=== PATIENT | male | born 1980 | race African-American/Black ===

== ENCOUNTER 2016-07-28 15:54 | Inpatient (IN) | payer OTHER ==
[~2016-07-28] VITALS: Ht 185.4 cm; Wt 73.7 kg
[2016-07-28] MEDS ORDERED: SOD CHLORIDE 0.9% 2,000 ML IV STA (16:08)
[2016-07-28] MEDS ORDERED: LACTATED RINGER'S 1,000 ML IV STA (16:08)
[2016-07-28 16:33] LABS: ADD SCAN DIFF NO
[2016-07-28 16:34] LABS: BASOPHILS % 0.2 % (0.0-2.0); HEMATOCRIT 51.2 % (42.0-52.0); HEMOGLOBIN 18.9 g/dl (14.0-18.0); LYMPHOCYTES # 0.6 10^3/ul (0.8-2.9); LYMPHOCYTES % 4.9 % (15.0-51.0); MEAN CORPUSCULAR HEMOGLOBIN 32.5 pg (29.0-33.0); MEAN CORPUSCULAR HGB CONC 36.9 g/dl (32.0-37.0); MEAN CORPUSCULAR VOLUME 88.1 fl (82.0-101.0); MEAN PLATELET VOLUME 9.1 fl (7.4-10.4); MONOCYTE # 0.8 10^3/ul (0.3-0.9); MONOCYTES % 6.1 % (0.0-11.0); NEUTROPHIL # 11.1 10^3/ul (1.6-7.5); NEUTROPHILS % 88.3 % (39.0-77.0); PLATELET COUNT 299 10^3/UL (140-415); RED BLOOD COUNT 5.81 10^6/ul (4.70-6.10); RED CELL DISTRIBUTION WIDTH 12.5 % (11.5-14.5); WHITE BLOOD COUNT 12.5 10^3/ul (4.8-10.8)
[2016-07-28 16:53] LABS: ALBUMIN 4.9 g/dl (3.3-4.9); ALBUMIN/GLOBULIN RATIO 1.58; BILIRUBIN,INDIRECT 0.4 mg/dl (0-1.1); BILIRUBIN,TOTAL 0.4 mg/dl (0.2-1.3); CALCIUM 9.6 mg/dl (8.4-10.2); CREATININE 1.34 mg/dl (0.61-1.24); MAGNESIUM 2.3 mg/dl (1.7-2.5); POTASSIUM 5.3 mmol/L (3.5-5.1)
[2016-07-28 17:05] LABS: ADD UMIC YES; URINE BILIRUBIN (Dip) NEGATIVE (NEGATIVE); URINE BLOOD (Dip) TRACE (NEGATIVE); URINE COLOR LT. YELLOW (YELLOW); URINE GLUCOSE (Dip) >=1000 % (NEGATIVE); URINE KETONES (Dip) 3+ (NEGATIVE); URINE LEUKOCYTE ESTERASE (Dip) NEGATIVE (NEGATIVE); URINE NITRITE (Dip) NEGATIVE (NEGATIVE); URINE TOTAL PROTEIN (Dip) NEGATIVE (NEGATIVE); URINE UROBILINOGEN (Dip) 0.2 E.U./dL (0.1-1.0)
[2016-07-28] MEDS ORDERED: INSULIN HUMAN REGULAR 100 UNIT in SOD CHLORIDE 0.9% 99 ML IV STA (17:06)
[2016-07-28 17:21] LABS: SQUAMOUS EPITHELIAL CELL,UR RARE; URINE RBCS 0-2 /HPF (0)
[2016-07-28] MEDS ORDERED: SOD CHLORIDE 0.9% 1,000 ML IV ONE (19:09)
--- NOTE | 2016-07-28 19:26 | ERA ---
ER Documentation Chief Complaint Date/Time DATE: 07/28/16 TIME: 19:23 Chief Complaint VOMITING AND DIARRHEA X 2 DAYS HPI Patient is a 36-year-old male with diabetes who presents saying "I think I have a virus". He said that he is vomiting and cannot keep anything down. He feels weak all over. He was breathing hard. This started on Wednesday. He said that he stopped taking his medications for diabetes 10 months ago. He does not currently have a primary doctor. Upon review of old medical records this is the patient's first visit to the emergency department. ROS All systems reviewed and are negative except as per history of present illness. Allergies Allergies: Coded Allergies: No Known Allergy (Unverified , 07/28/16) PMhx/Soc History of Surgery: No Anesthesia Reaction: No Hx Neurological Disorder: No Hx Respiratory Disorders: No Hx Cardiac Disorders: No Hx Psychiatric Problems: No Hx Miscellaneous Medical Probl: Yes (diabetes) Hx Alcohol Use: No Hx Substance Use: Yes (marijuana) Hx Tobacco Use: Yes Smoking Status: Current every day smoker FmHx Family History: diabetes Physical Exam Vitals Vital Signs Date Time Temp Pulse Resp B/P Pulse Ox O2 Delivery O2 Flow Rate FiO2 07/28/16 18:41 96 18 125/77 100 Room Air 07/28/16 17:55 94 21 116/74 100 Room Air 07/28/16 16:03 98.0 122 18 157/98 99 Physical Exam Const: No acute distress Head: Atraumatic Eyes: Normal Conjunctiva ENT: Normal External Ears, Nose and Mouth. Neck: Full range of motion..~ No meningismus. Resp: Clear to auscultation bilaterally Cardio: Regular rate and rhythm, no murmurs Abd: Diffuse tenderness to palpation without rebound or guarding Skin: No petechiae or rashes Back: No midline or flank tenderness Ext: No cyanosis, or edema Neur: Awake and alert Psych: Normal Mood and Affect Result Diagram: 07/28/16 1615 07/28/16 1615 Results 24 hrs Laboratory Tests Test 07/28/16 16:15 07/28/16 16:24 07/28/16 16:45 07/28/16 19:02 White Blood Count 12.510^3/ul Red Blood Count 5.8110^6/ul Hemoglobin 18.9g/dl Hematocrit 51.2% Mean Corpuscular Volume 88.1fl Mean Corpuscular Hemoglobin 32.5pg Mean Corpuscular Hemoglobin Concent 36.9g/dl Red Cell Distribution Width 12.5% Platelet Count 78337^3/UL Mean Platelet Volume 9.1fl Neutrophils % 88.3% Lymphocytes % 4.9% Monocytes % 6.1% Eosinophils % 0.0% Basophils % 0.2% Nucleated Red Blood Cells % 0.0/100WBC Neutrophils # 11.110^3/ul Lymphocytes # 0.610^3/ul Monocytes # 0.810^3/ul Eosinophils # 0.010^3/ul Basophils # 0.010^3/ul Nucleated Red Blood Cells # 0.010^3/ul Sodium Level 122mmol/L Potassium Level 5.3mmol/L Chloride Level 89mmol/L Carbon Dioxide Level 9mmol/L Anion Gap 29 Blood Urea Nitrogen 22mg/dl Creatinine 1.34mg/dl Glucose Level 732mg/dl Lactic Acid Level 3.2mmol/L Calcium Level 9.6mg/dl Magnesium Level 2.3mg/dl Total Bilirubin 0.4mg/dl Direct Bilirubin 0.00mg/dl Indirect Bilirubin 0.4mg/dl Aspartate Amino Transf (AST/SGOT) 21IU/L Alanine Aminotransferase (ALT/SGPT) 56IU/L Alkaline Phosphatase 82IU/L Total Protein 8.0g/dl Albumin 4.9g/dl Globulin 3.10g/dl Albumin/Globulin Ratio 1.58 Bedside Glucose > 595mg/dL 452mg/dL Urine Color LT. YELLOW Urine Clarity CLEAR Urine pH 5.0 Urine Specific [place] 1.015 Urine Ketones 3+ Urine Nitrite NEGATIVE Urine Bilirubin NEGATIVE Urine Urobilinogen 0.2 E.U./dL Urine Leukocyte Esterase NEGATIVE Urine Microscopic RBC 0-2/HPF Urine Microscopic WBC 0-2/HPF Urine Squamous Epithelial Cells RARE Urine Hemoglobin TRACE Urine Glucose >=1000% Urine Total Protein NEGATIVE Current Medications Medications (Trade) Dose Ordered Sig/Mami Route PRN Reason Start Time Stop Time Status Last Admin Dose Admin Sodium Chloride 2,000 ml @ 1,000 mls/hr Q2H STAT IV 07/28/16 16:08 07/28/16 18:07 DC 07/28/16 16:54 Lactated Ringer's 1,000 ml @ 1,000 mls/hr Q1H STAT IV 07/28/16 16:08 07/28/16 17:07 DC 07/28/16 18:37 Insulin Human Regular 100 unit/ Sodium Chloride 100 ml @ 7 mls/hr ONCE STAT IV 07/28/16 17:06 07/29/16 07:23 07/28/16 17:52 Sodium Chloride (NS) 1,000 ml @ 200 mls/hr Q5H ONCE IV 07/28/16 19:09 07/29/16 00:08 07/28/16 19:21 Dextrose (D50w Syringe) 50 ml Q15M PRN IV For BS 50 or less 07/28/16 19:30 UNV Dextrose 25 ml 25 ml Q15M PRN IV BS between 50-70 07/28/16 19:30 UNV Insulin Human Regular/Sodium Chloride (Novolin-R/NS) 100 ml @ 0 mls/hr DKA PROTOCOL IV 07/28/16 19:30 UNV Diagnostic Test (Pha) (Accu-Chek) 1 ea Q1H XX 07/28/16 19:30 UNV Miscellaneous Information HYPOGLYCEMIA TREATMENT HYPOGLYCEM PROTOCOL PRN XX Hypoglycemia (BS < 70) 07/28/16 19:30 UNV Sodium Chloride 1,000 ml @ 125 mls/hr Q8H IV 07/28/16 19:20 UNV Dextrose/Sodium Chloride (D5-1/2ns) 1,000 ml @ 125 mls/hr Q8H IV 07/28/16 19:20 UNV Famotidine (Pepcid Iv) 20 mg BID IV 07/28/16 21:00 UNV Ondansetron HCl (Zofran Inj) 4 mg Q6H PRN IV NAUSEA AND/OR VOMITING 07/28/16 19:30 UNV Docusate Sodium (Colace) 200 mg BID PO 07/28/16 21:00 UNV Procedures/MDM EKG read by me: Rate/Rhythm: Sinus tachycardia Intervals: Normal Impression: Sinus tachycardia without ischemia Smoking Cessation Therapy: Pt. was lectured for greater than 3 minutes on the health risks of continued smoking and the benefits of cessation. Patient is a 36-year-old male with diabetes who presents with acute diabetic ketoacidosis. The patient was given 3 L of fluid resuscitation and was started on insulin drip at 7 U/h. The patient will be admitted to the intensive care unit under the care of Dr. Brown from the panel team. The patient is likely in DKA because he has been off of his medications. His lactic acid is elevated but I doubt sepsis at this time. Critical Care: Time: 35 minutes excluding all billable procedures. Treatments/Evaluations: Close monitoring and treatment of unstable vital signs, cardiorespiratory, and neurologic status, while maintaining tight balance of fluid, respiratory, and cardiac interventions. Departure Diagnosis: Primary Impression: DKA (diabetic ketoacidoses) Qualified Code: E13.10 - Diabetic ketoacidosis without coma associated with other specified diabetes mellitus Additional Impressions: Nausea and vomiting Qualified Code: R11.2 - Non-intractable vomiting with nausea, unspecified vomiting type Acidosis Condition: Critical BUD DEWITT MD July 28, 2016 19:26
[2016-07-28] MEDS ORDERED: ONDANSETRON 4 MG INJ IV PRN (19:30)
[2016-07-28] MEDS: ACCU-CHEK XX SCH ×5 (19:30→23:30)
[2016-07-28] MEDS ORDERED: INSULIN HUMAN REGULAR 100 UNIT in SOD CHLORIDE 0.9% 99 ML IV SCH (19:30)
[2016-07-28] MEDS ORDERED: DEXTROSE 50% 50 ML SYRINGE IV PRN ×2 (19:30)
[2016-07-28 21:53] LABS: POTASSIUM 4.2 mmol/L (3.5-5.1)
[2016-07-28 21:55] LABS: CREATININE 0.98 mg/dl (0.61-1.24); PHOSPHORUS 2.4 mg/dl (2.5-4.9)
[2016-07-28 21:56] LABS: CALCIUM 8.7 mg/dl (8.4-10.2)
--- NOTE | 2016-07-28 21:56 | HP ---
DATE OF ADMISSION: 07/28/2016 PRESENTING COMPLAINT: Loss of appetite, lethargy and nausea and vomiting. HISTORY OF PRESENTING COMPLAINT: A 36-year-old male with a known history of diabetes mellitus who has been off his medications for about 10 months now. The patient reports going off his oral medications because he ran out of them and couldn't get a refill. He states, however, he has never had DKA before. He denies fever but notes just severe lethargy, loss of appetite, polyuria as well as polydipsia. He denies visual changes, ear pain. He denies shortness of breath, cough or wheezing. Denies chest pain or palpitations. Denies edema. Denies dysuria or hematuria. Denies joint pain or swelling. Denies skin rash. Denies syncope, dizziness, seizure or focal weakness. REVIEW OF SYSTEMS: A 12-point review of systems was done. Pertinent findings are as noted in HPI. PAST MEDICAL HISTORY: Diabetes mellitus only. SURGICAL HISTORY: The patient denies. ALLERGIES: NO KNOWN DRUG ALLERGIES. SOCIAL HISTORY: Does smoke tobacco as well as marijuana. Drinks alcohol occasionally. Denies illicit drug use. FAMILY HISTORY: Noncontributory. HOME MEDICATIONS: None. PHYSICAL EXAMINATION: VITAL SIGNS: Temperature 98.0, pulse 96, respirations 18, blood pressure 125/77 , saturations are 100% on room air. GENERAL: A very lethargic male but alert and oriented, not in any acute distress. HEENT: Head normocephalic. Pupils equal and reactive. There is no scleral jaundice. The patient has diffuse oral thrush all over his mouth extending to his posterior pharynx, and his posterior pharynx also is somewhat inflamed. The patient, however, denies dysphagia. NECK: Supple without adenopathy or JVD. CHEST: Clear to auscultation with good breath sounds. CARDIOVASCULAR: mildly tachycardic but without murmurs. ABDOMEN: Soft, nontender, nondistended with normoactive bowel sounds. EXTREMITIES: The patient has no lower extremity edema. SKIN: Devoid of rash or jaundice. LABORATORY VALUES: Leukocytosis of 12,000, hemoglobin of 18 likely secondary to hemoconcentration, normal platelets. He has neutrophilia without bandemia. Chemistry: Serum glucose when he came in was 732 with lactic acid of 3.2. Sodium is low at 122, potassium was elevated at 5.3. BUN 22, creatinine 1.34. LFTs were unremarkable. Urinalysis was diffusely abnormal but not highly suggestive of a UTI. There was glycosuria greater than 1000 grams/dL, and there was significant ketonuria 3+. No imaging studies to report at this time. ASSESSMENT: A 36-year-old male who presents with severe acidosis secondary to: 1. Diabetic ketoacidosis. Bicarbonate level 9, serum glucose 732. 2. Systemic inflammatory response syndrome secondary to #1. 3. Hyperkalemia: will correct with glucose correction 4. pseudohyponatremia. 5. Acute renal insufficiency, likely prerenal in origin. 6. Severe dehydration secondary to #1. 7. Noncompliance with therapy. 8. Chronic tobacco use and abuse. PLAN: The patient is to be admitted into the intensive care unit for management of DKA via the DKA protocol, aggressive hydration and insulin drip. The patient will be kept n.p.o. except medications and ice chips. Will do serial labs and titrate his regimen as indicated. He will benefit from diabetic as well as dietary education. Will serially monitor his lactic acid as well, and he will be put on PPI for GI prophylaxis and SCDs for DVT prophylaxis. Further interventions will be per clinical course. Tobacco cessation counseling has commenced and will continue to be reinforced throughout this hospitalization. For further information and clarification, please review the patient's chart and my orders. Dictated By: IMANI GERARD MD, BA/PARTHA Conf#: [id number] DID#: [id number]
[2016-07-28] MEDS: ACETAMINOPHEN 325 MG TAB PO PRN (22:09)
[2016-07-29] VITALS (18 sets, daily range): BP systolic 101–120; BP diastolic 59–87; PULSE 73–99; RESP 14–22; Ht 185.4 cm; Wt 73.7 kg
[2016-07-29 00:01] LABS: CALCIUM 8.7 mg/dl (8.4-10.2); CREATININE 0.89 mg/dl (0.61-1.24); POTASSIUM 4.1 mmol/L (3.5-5.1)
[2016-07-29] MEDS: DEXTROSE 5%-0.45% NACL 1,000 ML IV SCH ×2 (00:17→03:20)
[2016-07-29] MEDS: ACCU-CHEK XX SCH ×11 (00:30→10:13)
[2016-07-29] MEDS: DOCUSATE SODIUM 100 MG CAP PO SCH ×3 (01:00→20:42)
[2016-07-29] MEDS: FAMOTIDINE 20 MG INJ IV SCH ×3 (01:00→20:42)
[2016-07-29] MEDS: SOD CHLORIDE 0.9% 1,000 ML IV SCH ×5 (01:20→23:50)
[2016-07-29 03:15] LABS: POTASSIUM 3.5 mmol/L (3.5-5.1)
[2016-07-29 03:17] LABS: CREATININE 0.79 mg/dl (0.61-1.24)
[2016-07-29 03:18] LABS: CALCIUM 8.7 mg/dl (8.4-10.2)
[2016-07-29] MEDS: ACETAMINOPHEN 325 MG TAB PO PRN ×2 (05:11→20:43)
[2016-07-29 06:39] LABS: CALCIUM 8.7 mg/dl (8.4-10.2); CREATININE 0.71 mg/dl (0.61-1.24); POTASSIUM 3.5 mmol/L (3.5-5.1)
[2016-07-29] MEDS ORDERED: INSULIN HUMAN REGULAR 100 UNIT in SOD CHLORIDE 0.9% 99 ML IV SCH (07:30)
[2016-07-29] MEDS ORDERED: DEXTROSE 50% 50 ML SYRINGE IV PRN ×4 (07:30→10:00)
[2016-07-29] MEDS ORDERED: GLUCOSE GEL 15 GRAM TUBE PO PRN ×2 (10:00)
[2016-07-29] MEDS ORDERED: GLUCOSE GEL 15 GRAM TUBE BUCCAL PRN (10:00)
[2016-07-29] MEDS ORDERED: GLUCAGON 1 MG INJ IM PRN (10:00)
[2016-07-29] MEDS: INSULIN GLARGINE [LANtus] 3 ML PEN SC SCH (10:12)
--- NOTE | 2016-07-29 10:32 | PN ---
Date/Time of Note Date/Time of Note DATE: 07/29/16 TIME: 10:32 Assessment/Plan VTE Prophylaxis VTE Prophylaxis Intervention: ambulation, SCD's Lines/Catheters IV Catheter Type (from Nrs): Peripheral IV Assessment/Plan Assessment/Plan A 36-year-old male who presents with managed for: Lethargy, nausea vomiting, 1. Diabetic ketoacidosis. : Patient has closed his gap. Commenced long- acting insulin and diabetic diet. * Transfer patient to [facility] / continue normal saline IV fluid 2. Systemic inflammatory response syndrome secondary to #1: Improved 3. Oral thrush: treat with nystatin / Screen for immunosuppression 4. Electrolyte abnormalities secondary to #1: : Resolved 5. Acute renal insufficiency, likely prerenal in origin: Resolved 6. Severe dehydration secondary to #1: improved 7. Noncompliance with therapy.: s/p counselling 8. Chronic tobacco use and abuse: s/p counselling Subjective 24 Hr Interval Summary Free Text/Dictation Patient feeling much better, asking for food. Exam/Review of Systems Vital Signs Vitals Vital Signs Date Time Temp Pulse Resp B/P Pulse Ox O2 Delivery O2 Flow Rate FiO2 07/29/16 09:00 98.7 90 15 114/75 98 Room Air Intake and Output 07/28/16 07/28/16 07/29/16 15:00 23:00 07:00 Intake Total 747 ml Output Total 1000 ml Balance -1000 ml 747 ml Exam Constitutional: alert, oriented Head: atraumatic, normocephalic, oral thrush. Neck: non-tender, supple Respiratory: clear to auscultation Cardiovascular: regular rate and rhythm Gastrointestinal: nl liver, spleen, non-tender, soft Extremities: normal pulses Results Result Diagram: 07/28/16 1615 07/29/16 0551 Results 24 hrs Laboratory Tests Test 07/28/16 16:15 07/28/16 16:24 07/28/16 16:45 07/28/16 19:02 White Blood Count 12.5 H Red Blood Count 5.81 Hemoglobin 18.9 H Hematocrit 51.2 Mean Corpuscular Volume 88.1 Mean Corpuscular Hemoglobin 32.5 Mean Corpuscular Hemoglobin Concent 36.9 Red Cell Distribution Width 12.5 Platelet Count 299 Mean Platelet Volume 9.1 Neutrophils % 88.3 H Lymphocytes % 4.9 L Monocytes % 6.1 Eosinophils % 0.0 Basophils % 0.2 Nucleated Red Blood Cells % 0.0 Neutrophils # 11.1 H Lymphocytes # 0.6 L Monocytes # 0.8 Eosinophils # 0.0 Basophils # 0.0 Nucleated Red Blood Cells # 0.0 Sodium Level 122 L Potassium Level 5.3 H Chloride Level 89 L Carbon Dioxide Level 9 *L Anion Gap 29 H Blood Urea Nitrogen 22 H Creatinine 1.34 H Glucose Level 732 *H Lactic Acid Level 3.2 H Calcium Level 9.6 Magnesium Level 2.3 Total Bilirubin 0.4 Direct Bilirubin 0.00 Indirect Bilirubin 0.4 Aspartate Amino Transf (AST/SGOT) 21 Alanine Aminotransferase (ALT/SGPT) 56 Alkaline Phosphatase 82 Total Protein 8.0 Albumin 4.9 Globulin 3.10 Albumin/Globulin Ratio 1.58 Bedside Glucose > 595 *H 452 *H Urine Color LT. YELLOW Urine Clarity CLEAR Urine pH 5.0 Urine Specific [place] 1.015 Urine Ketones 3+ H Urine Nitrite NEGATIVE Urine Bilirubin NEGATIVE Urine Urobilinogen 0.2 E.U./dL Urine Leukocyte Esterase NEGATIVE Urine Microscopic RBC 0-2 Urine Microscopic WBC 0-2 Urine Squamous Epithelial Cells RARE Urine Hemoglobin TRACE Urine Glucose >=1000 Urine Total Protein NEGATIVE Test 07/28/16 20:14 07/28/16 21:04 07/28/16 21:25 07/28/16 21:56 Bedside Glucose 312 H 239 H 205 Sodium Level 134 L Potassium Level 4.2 Chloride Level 109 # Carbon Dioxide Level 15 L Anion Gap 14 # Blood Urea Nitrogen 19 Creatinine 0.98 Glucose Level 221 #H Lactic Acid Level 1.9 Calcium Level 8.7 Phosphorus Level 2.4 L Magnesium Level 2.0 Test 07/28/16 22:30 07/28/16 23:01 07/28/16 23:30 07/29/16 00:14 Sodium Level 131 L Potassium Level 4.1 Chloride Level 106 Carbon Dioxide Level 17 L Anion Gap 12 Blood Urea Nitrogen 17 Creatinine 0.89 Glucose Level 165 Calcium Level 8.7 Bedside Glucose 150 87 Lactic Acid Level 1.1 Test 07/29/16 01:01 07/29/16 01:57 07/29/16 02:12 07/29/16 03:05 Bedside Glucose 98 113 84 Sodium Level 135 Potassium Level 3.5 Chloride Level 114 H Carbon Dioxide Level 17 L Anion Gap 8 Blood Urea Nitrogen 15 Creatinine 0.79 Glucose Level 92 # Calcium Level 8.7 Test 07/29/16 03:56 07/29/16 04:16 07/29/16 04:30 07/29/16 05:05 Bedside Glucose 63 L 132 140 155 Test 07/29/16 05:51 07/29/16 06:05 07/29/16 07:02 07/29/16 08:00 Sodium Level 127 L Potassium Level 3.5 Chloride Level 105 Carbon Dioxide Level 17 L Anion Gap 9 Blood Urea Nitrogen 13 Creatinine 0.71 Glucose Level 173 Lactic Acid Level 0.7 Calcium Level 8.7 Bedside Glucose 178 203 164 Test 07/29/16 08:55 07/29/16 10:06 Bedside Glucose 137 138 Medications Medications Current Medications Sodium Chloride 1,000 ml @ 125 mls/hr Q8H IV Last administered on 07/29/16 07 :12; Admin Dose 125 MLS/HR; Start 07/28/16 at 19:20; Stop 07/29/16 at 11:00 Dextrose/Sodium Chloride (D5-1/2ns) 1,000 ml @ 125 mls/hr Q8H IV Last administered on 07/29/16 00:17; Admin Dose 125 MLS/HR; Start 07/28/16 at 19:20 ; Stop 07/29/16 at 11:00 Famotidine (Pepcid Iv) 20 mg BID IV Last administered on 07/29/16 09:12; Admin Dose 20 MG; Start 07/28/16 at 21:00 Ondansetron HCl (Zofran Inj) 4 mg Q6H PRN IV NAUSEA AND/OR VOMITING; Start at 19:30 Docusate Sodium (Colace) 200 mg BID PO ; Start 07/28/16 at 21:00 Acetaminophen (Tylenol Tab) 650 mg Q6 PRN PO PAIN Last administered on 05:11; Admin Dose 650 MG; Start 07/28/16 at 22:00 Insulin Glargine (Lantus) 20 unit DAILY@08 SC Last administered on 07/29/16 10 :12; Admin Dose 20 UNIT; Start 07/29/16 at 10:00 Miscellaneous Information 1 ea NOTE XX ; Start 07/29/16 at 10:00 Glucose (Glutose) 15 gm Q15M PRN PO DECREASED GLUCOSE; Start 07/29/16 at 10:00 Glucose (Glutose) 22.5 gm Q15M PRN PO DECREASED GLUCOSE; Start 07/29/16 at 10: 00 Dextrose (D50w Syringe) 25 ml Q15M PRN IV DECREASED GLUCOSE; Start 07/29/16 at 10:00 Dextrose (D50w Syringe) 50 ml Q15M PRN IV DECREASED GLUCOSE; Start 07/29/16 at 10:00 Glucagon (Glucagen) 1 mg Q15M PRN IM DECREASED GLUCOSE; Start 07/29/16 at 10:00 Glucose (Glutose) 15 gm Q15M PRN BUCCAL DECREASED GLUCOSE; Start 07/29/16 at 10 :00 Miscellaneous Information (* Miscellaneous Pharmacy Order) HYPOGLYCEMIA PROTOCOL w... ONCE ONCE XX ; Start 07/29/16 at 10:30; Stop 07/29/16 at 10:31; Status UNV Miscellaneous Information (* Miscellaneous Pharmacy Order) Discontinue Glyburide , Glipizide,... ONCE ONCE XX ; Start 07/29/16 at 10:30; Stop 07/29/16 at 10:31 ; Status UNV Miscellaneous Information (* Miscellaneous Pharmacy Order) Discontinue all previ... ONCE ONCE XX ; Start 07/29/16 at 10:30; Stop 07/29/16 at 10:31; Status UNV Diagnostic Test (Pha) (Accu-Chek) 1 ea XX ; Start 07/30/16 at 02:00; Status UNV Nystatin (Nystatin Susp) 5 ml QID PO ; Start 07/29/16 at 10:30; Status UNV IMANI GERARD July 29, 2016 10:32
[2016-07-29 11:26] LABS: POTASSIUM 3.7 mmol/L (3.5-5.1)
[2016-07-29 11:28] LABS: CREATININE 0.67 mg/dl (0.61-1.24)
[2016-07-29 11:29] LABS: CALCIUM 8.4 mg/dl (8.4-10.2)
[2016-07-29] MEDS: NYSTATIN SUSP 5 ML CUP PO SCH ×4 (13:00→20:42)
[2016-07-29] MEDS: INSULIN ASPART [NOVOLOG] 3 ML PEN SC SCH ×3 (13:24→20:58)
[2016-07-29] MEDS: metFORMIN 500 MG TAB PO SCH (17:33)
[2016-07-29] MEDS ORDERED: metFORMIN 500 MG TAB PO SCH (17:35)
[2016-07-29] MEDS ORDERED: PENDING SANTYL ORDER FOR WOUND CARE XX PRN (20:00)
[2016-07-30] MEDS ORDERED: ZOLPIDEM 5 MG TAB PO PRN (02:00)
[2016-07-30] MEDS: ACCU-CHEK XX SCH (02:00)
[2016-07-30] MEDS: ACETAMINOPHEN 325 MG TAB PO PRN ×2 (02:02→08:40)
[2016-07-30 07:33] VITALS: BP 129/73; RESP 20
[2016-07-30] MEDS ORDERED: INSULIN GLARGINE [LANtus] 3 ML PEN SC SCH (08:00)
[2016-07-30] MEDS: INSULIN ASPART [NOVOLOG] 3 ML PEN SC SCH ×4 (08:16→20:43)
[2016-07-30] MEDS: SOD CHLORIDE 0.9% 1,000 ML IV SCH ×3 (08:17→23:14)
[2016-07-30] MEDS: INSULIN GLARGINE [LANtus] 3 ML PEN SC SCH (08:17)
[2016-07-30] MEDS: DOCUSATE SODIUM 100 MG CAP PO SCH ×2 (08:32→20:37)
[2016-07-30] MEDS: metFORMIN 500 MG TAB PO SCH ×2 (08:32→18:04)
[2016-07-30] MEDS: NYSTATIN SUSP 5 ML CUP PO SCH ×4 (08:32→20:37)
[2016-07-30] MEDS: FAMOTIDINE 20 MG INJ IV SCH ×2 (08:32→20:37)
[2016-07-30 09:38] LABS: ADD SCAN DIFF NO; BASOPHILS % 0.1 % (0.0-2.0); EOSINOPHILS % 0.1 % (0.0-7.0); HEMATOCRIT 35.4 % (42.0-52.0); LYMPHOCYTES # 0.9 10^3/ul (0.8-2.9); LYMPHOCYTES % 11.8 % (15.0-51.0); MEAN CORPUSCULAR HEMOGLOBIN 32.8 pg (29.0-33.0); MEAN CORPUSCULAR VOLUME 85.9 fl (82.0-101.0); MONOCYTE # 0.9 10^3/ul (0.3-0.9); MONOCYTES % 11.8 % (0.0-11.0); NEUTROPHIL # 5.6 10^3/ul (1.6-7.5); NEUTROPHILS % 75.7 % (39.0-77.0); PLATELET COUNT 165 10^3/UL (140-415); RED BLOOD COUNT 4.12 10^6/ul (4.70-6.10); RED CELL DISTRIBUTION WIDTH 12.7 % (11.5-14.5); WHITE BLOOD COUNT 7.4 10^3/ul (4.8-10.8)
[2016-07-30 10:05] LABS: HEMOGLOBIN 13.5 g/dl (14.0-18.0); MEAN CORPUSCULAR HGB CONC 38.1 g/dl (32.0-37.0)
[2016-07-30 10:11] LABS: CALCIUM 8.3 mg/dl (8.4-10.2); CREATININE 0.57 mg/dl (0.61-1.24); MAGNESIUM 1.5 mg/dl (1.7-2.5); POTASSIUM 3.1 mmol/L (3.5-5.1)
[2016-07-30] MEDS ORDERED: POTASSIUM CHLORIDE (SR) 20 MEQ TAB PO STA (11:00)
--- NOTE | 2016-07-30 11:00 | PN ---
Date/Time of Note Date/Time of Note DATE: 07/30/16 TIME: 10:58 Assessment/Plan VTE Prophylaxis VTE Prophylaxis Intervention: ambulation, SCD's Lines/Catheters IV Catheter Type (from Nrsg): Peripheral IV Assessment/Plan Assessment/Plan A 36-year-old male who presents with managed for: Lethargy, nausea vomiting, 1. Diabetic ketoacidosis. : resolved./ now focus on Diabetic control 2. Systemic inflammatory response syndrome secondary to #1: Improved 3. Oral thrush: treat with nystatin / Screen for immunosuppression 4. Hypokalemia and hypomagnesemia 5. Acute renal insufficiency, likely prerenal in origin: Resolved 6. Severe dehydration secondary to #1: improved 7. Noncompliance with therapy.: s/p counselling 8. Chronic tobacco use and abuse: s/p counselling 9. Diabetic foot ulcer with surrounding cellulitis and possible abscess: abx / ID / podiatry / XR and possible MRI Subjective 24 Hr Interval Summary Free Text/Dictation Patient found to have purulent toe wound on evaluation today Exam/Review of Systems Vital Signs Vitals Vital Signs Date Time Temp Pulse Resp B/P Pulse Ox O2 Delivery O2 Flow Rate FiO2 07/30/16 07:33 98.6 89 20 129/73 100 07/29/16 16:00 Room Air Intake and Output 07/29/16 07/29/16 07/30/16 15:00 23:00 07:00 Intake Total 1627.5 ml 250 ml 1625 ml Output Total 1200 ml 350 ml Balance 427.5 ml -100 ml 1625 ml Exam Constitutional: alert, oriented Head: atraumatic, normocephalic, oral thrush. Neck: non-tender, supple Respiratory: clear to auscultation Cardiovascular: regular rate and rhythm Gastrointestinal: nl liver, spleen, non-tender, soft Extremities: normal pulses Results Result Diagram: 07/30/16 0850 07/30/16 0850 Results 24 hrs Laboratory Tests Test 07/29/16 11:48 07/29/16 13:06 07/29/16 17:11 07/29/16 20:40 Bedside Glucose 307 H 289 H 145 201 Test 07/30/16 01:49 07/30/16 08:14 07/30/16 08:50 Bedside Glucose 188 153 White Blood Count 7.4 # Red Blood Count 4.12 #L Hemoglobin 13.5 #L Hematocrit 35.4 #L Mean Corpuscular Volume 85.9 Mean Corpuscular Hemoglobin 32.8 Mean Corpuscular Hemoglobin Concent 38.1 H Red Cell Distribution Width 12.7 Platelet Count 165 # Mean Platelet Volume 9.0 Neutrophils % 75.7 Lymphocytes % 11.8 L Monocytes % 11.8 H Eosinophils % 0.1 Basophils % 0.1 Nucleated Red Blood Cells % 0.0 Neutrophils # 5.6 Lymphocytes # 0.9 Monocytes # 0.9 Eosinophils # 0.0 Basophils # 0.0 Nucleated Red Blood Cells # 0.0 Sodium Level 129 L Potassium Level 3.1 L Chloride Level 103 Carbon Dioxide Level 24 Anion Gap 5 L Blood Urea Nitrogen 5 L Creatinine 0.57 L Glucose Level 179 Calcium Level 8.3 L Magnesium Level 1.5 L Medications Medications Current Medications Famotidine (Pepcid Iv) 20 mg BID IV Last administered on 07/30/16 08:32; Admin Dose 20 MG; Start 07/28/16 at 21:00 Ondansetron HCl (Zofran Inj) 4 mg Q6H PRN IV NAUSEA AND/OR VOMITING; Start at 19:30 Docusate Sodium (Colace) 200 mg BID PO Last administered on 07/30/16 08:32; Admin Dose 200 MG; Start 07/28/16 at 21:00 Acetaminophen (Tylenol Tab) 650 mg Q6 PRN PO PAIN Last administered on 08:40; Admin Dose 650 MG; Start 07/28/16 at 22:00 Insulin Glargine (Lantus) 20 unit DAILY@08 SC Last administered on 07/30/16 08: 17; Admin Dose 20 UNIT; Start 07/29/16 at 10:00 Miscellaneous Information 1 ea NOTE XX ; Start 07/29/16 at 10:00 Glucose (Glutose) 15 gm Q15M PRN PO DECREASED GLUCOSE; Start 07/29/16 at 10:00 Glucose (Glutose) 22.5 gm Q15M PRN PO DECREASED GLUCOSE; Start 07/29/16 at 10: 00 Dextrose (D50w Syringe) 25 ml Q15M PRN IV DECREASED GLUCOSE; Start 07/29/16 at 10:00 Dextrose (D50w Syringe) 50 ml Q15M PRN IV DECREASED GLUCOSE; Start 07/29/16 at 10:00 Glucagon (Glucagen) 1 mg Q15M PRN IM DECREASED GLUCOSE; Start 07/29/16 at 10:00 Glucose (Glutose) 15 gm Q15M PRN BUCCAL DECREASED GLUCOSE; Start 07/29/16 at 10 :00 Diagnostic Test (Pha) (Accu-Chek) 1 ea 02 XX ; Start 07/30/16 at 02:00 Nystatin 5 ml 5 ml QID PO Last administered on 07/30/16 08:32; Admin Dose 5 ML ; Start 07/29/16 at 10:30 Sodium Chloride (NS) 1,000 ml @ 125 mls/hr Q8H IV Last administered on 08:17; Admin Dose 125 MLS/HR; Start 07/29/16 at 15:00 [facility]isc[facility] This patient lamb... PRN PRN XX WOUND CARE; Start 07/29/16 at 20:00 Zolpidem Tartrate (Ambien) 5 mg HS PRN PO INSOMNIA Last administered on 02:01; Admin Dose 5 MG; Start 07/30/16 at 02:00 IMANI GERARD Jul 30, 2016 10:59 IMANI GERARD Jul 30, 2016 10:59
[2016-07-30] MEDS ORDERED: VANCOMYCIN IV PER PHARMACY XX SCH (11:30)
[2016-07-30] MEDS: LEVOFLOXACIN 500MG/D5W (PMX) 100 ML IVPB SCH (11:46)
[2016-07-30] MEDS ORDERED: POTASSIUM CHLORIDE 250 ML IVPB ONE (12:00)
[2016-07-30] MEDS ORDERED: MAGNESIUM SULFATE 2 GM/50 ML 50 ML IVPB ONE (12:00)
[2016-07-30] MEDS ORDERED: VANCOMYCIN 1.5 GM in SOD CHLORIDE 0.9% 250 ML IVPB SCH (13:00)
[2016-07-30] MEDS ORDERED: morphine 2 MG INJ IV ONE ×2 (14:00→22:20)
[2016-07-30] MEDS ORDERED: HYDROCODONE/APAP (7.5/325) TAB PO PRN (14:00)
[2016-07-30 19:38] VITALS: BP 114/58; RESP 18
[2016-07-30] MEDS: VANCOMYCIN 1 GM in NS 250 ML IVPB SCH (20:38)
[2016-07-30] MEDS ORDERED: LIDOCAINE 1% (MPF) 30 ML INJ INJ PRN (22:30)
[2016-07-30] MEDS ORDERED: HYDROCODONE/APAP (5/325) TAB PO PRN (23:00)
[2016-07-30] MEDS ORDERED: morphine 2 MG INJ IV PRN (23:00)
[2016-07-30] MEDS ORDERED: ASCORBIC ACID 500 MG TAB PO ONE (23:00)
--- NOTE | 2016-07-30 23:09 | CONS ---
DATE OF ADMISSION: 07/28/2016 DATE OF CONSULTATION: 07/30/2016 CHIEF COMPLAINT: Right foot infection. HISTORY OF PRESENT ILLNESS: This is a 36-year-old male with poorly controlled diabetes, who was adm itted with a blood sugar of 732 with a DKA. Was stabilized in the intensive care unit, and I was co nsulted for surgical evaluation. Patient relates a blister forming. Denies any trauma or injury or puncture. PAST MEDICAL HISTORY: Type 2 diabetes with neuropathy. PAST SURGICAL HISTORY: None. ALLERGIES: NO KNOWN DRUG ALLERGIES. SOCIAL HISTORY: Positive for marijuana. Social alcohol. FAMILY HISTORY: Diabetes. PHYSICAL EXAMINATION: VITAL SIGNS: Temperature 98.9, pulse is 99, respiratory rate 18, blood pressure 114/58, pulse oxime try is 98 at room air. GENERAL: The patient awake, alert, lying supine. EXTREMITIES: Patient with severe edema to the right foot. The compartments of the foot are distend ed with pitting edema. Edema is spreading to the ankle. There is an ulceration at the PIP joint, d orsal aspect of fourth toe. There is purulent drainage. Patient with decrease of protective sensat ion. No visible instability of the toe or mid foot. Pulses are bounding. Dystrophic nails. LABORATORIES: WBC 7.4, hemoglobin 13.5, hematocrit 35.4, platelets 165. Sodium 129, potassium 3.1, chloride 103, CO2 24, BUN 5, creatinine 0.57. Radiographs pending. Cultures of the nares is pendi ng. ASSESSMENT: 1. Right foot deep space abscess. 2. Diabetic foot ulceration. 3. Ascending cellulitis. 4. Type 2 diabetes, poorly controlled. 5. Diabetes with peripheral neuropathy. PLAN: The patient seen and evaluated. Imaging studies are pending. Procedure recommended to preve nt amputation. The patient is at risk and consented for incision and drainage, right foot. Proced ure was performed with nursing. Time out performed. The sural, superficial peroneal nerves were an esthetized with lidocaine 1% plain, 30 mL, and the foot was sterilized with Betadine solution, and u sing a hemostat, the ulceration was explored. There is a tunneling wound from the toe to the midfoo t. At this time, using an 11 blade, multiple incisions were made below skin, dermis, fascia, and ap proximately 40 to 50 mL of serosanguineous and purulent drainage drained. Cultures were obtained an d the surgical wounds were irrigated with Betadine and packed open with a gauze dressing. The patie nt tolerated the procedure well. The patient is scheduled for MRI. Radiographs have been obtained, but imaging his pending. Further disposition pending resolution or progression of infection. The patient is on vancomycin and Levaquin and nystatin. Continue tight glycemic control. Further recom mendations pending clinical appearance. Dictated By: OLESYA SOLIS/PARTHA Conf#: [id number] DID#: [id number]
[2016-07-31] MEDS: ACCU-CHEK XX SCH (02:34)
[2016-07-31] MEDS: VANCOMYCIN 1 GM in NS 250 ML IVPB SCH (05:19)
[2016-07-31] MEDS: SOD CHLORIDE 0.9% 1,000 ML IV SCH ×4 (07:00→23:00)
[2016-07-31] MEDS ORDERED: LORAZEPAM 2 MG INJ IV ONE (07:00)
[2016-07-31 07:11] LABS: ADD SCAN DIFF NO
[2016-07-31 07:17] LABS: BASOPHILS % 0.1 % (0.0-2.0); EOSINOPHILS % 0.1 % (0.0-7.0); HEMATOCRIT 35.6 % (42.0-52.0); HEMOGLOBIN 13.2 g/dl (14.0-18.0); LYMPHOCYTES # 1.5 10^3/ul (0.8-2.9); LYMPHOCYTES % 18.9 % (15.0-51.0); MEAN CORPUSCULAR HEMOGLOBIN 32.1 pg (29.0-33.0); MEAN CORPUSCULAR HGB CONC 37.1 g/dl (32.0-37.0); MEAN CORPUSCULAR VOLUME 86.6 fl (82.0-101.0); MEAN PLATELET VOLUME 9.2 fl (7.4-10.4); MONOCYTES % 12.9 % (0.0-11.0); NEUTROPHIL # 5.4 10^3/ul (1.6-7.5); NEUTROPHILS % 67.5 % (39.0-77.0); PLATELET COUNT 162 10^3/UL (140-415); RED BLOOD COUNT 4.11 10^6/ul (4.70-6.10); RED CELL DISTRIBUTION WIDTH 12.8 % (11.5-14.5); WHITE BLOOD COUNT 8.1 10^3/ul (4.8-10.8)
[2016-07-31 07:44] LABS: CALCIUM 8.4 mg/dl (8.4-10.2); CREATININE 0.61 mg/dl (0.61-1.24)
[2016-07-31 07:57] VITALS: BP 128/72; RESP 16
--- NOTE | 2016-07-31 08:14 | RADRPT ---
PROCEDURE: XR Foot. CLINICAL INDICATION: Right foot pain following injury. TECHNIQUE: 3 views of the right foot are available for review. COMPARISON: None available FINDINGS: The osseous structures demonstrate normal alignment and mineralization. No acute fracture or disloc ation is seen. There is no periostitis or osteochondral lesion identified. The joint spaces are wel l preserved. The soft tissues are unremarkable. IMPRESSION: Unremarkable right foot x-ray series. If high clinical suspicion for osteomyelitis, MRI can be perf ormed for further evaluation.. RPTAT: HH .Kelly Fairbanks MD, MD Date Time Electronically viewed and signed by .Kelly Fairbanks MD, MD on 07/31/2016 08:14 .G/
[2016-07-31] MEDS: ZINC SULFATE 220 MG CAP PO SCH (08:23)
[2016-07-31] MEDS: NYSTATIN SUSP 5 ML CUP PO SCH ×4 (08:23→20:43)
[2016-07-31] MEDS: DOCUSATE SODIUM 100 MG CAP PO SCH ×2 (08:24→20:43)
[2016-07-31] MEDS: metFORMIN 500 MG TAB PO SCH ×2 (08:24→17:36)
[2016-07-31] MEDS: FAMOTIDINE 20 MG INJ IV SCH ×2 (08:24→20:43)
[2016-07-31] MEDS: SODIUM HYPOCHLORITE 1/40% 1L IRRIG IRR SCH ×2 (08:26→21:00)
[2016-07-31] MEDS: INSULIN ASPART [NOVOLOG] 3 ML PEN SC SCH ×4 (08:38→20:44)
[2016-07-31] MEDS: INSULIN GLARGINE [LANtus] 3 ML PEN SC SCH (08:38)
[2016-07-31] MEDS: LEVOFLOXACIN 500MG/D5W (PMX) 100 ML IVPB SCH (10:48)
[2016-07-31] MEDS ORDERED: VANCOMYCIN 1 GM in NS 250 ML IVPB SCH (13:00)
[2016-07-31] MEDS: REPAGLINIDE 1 MG TAB PO SCH ×2 (13:13→17:40)
[2016-07-31] MEDS: POTASSIUM CHLORIDE 250 ML IVPB SCH ×2 (14:30→18:19)
--- NOTE | 2016-07-31 14:55 | CONS ---
DATE OF ADMISSION: 07/28/2016 DATE OF CONSULTATION: 07/31/2016 TYPE OF CONSULTATION: Infectious Disease REASON FOR CONSULTATION: Antibiotic management. HISTORY OF PRESENT ILLNESS: Gato Castillo is a 36-year-old male who comes in with loss of appet ite, nausea and vomiting. His past problems include adult-onset diabetes mellitus for which he has been off medications for about 10 months. He has never had DKA. Denies fever, but no notes severe lethargy, loss of appetite and polyuria and polydipsia. On admission, his white count was 12.5, H a nd H 18.9 and 51.2, platelet count of 299,000. On 07/31/2016, his white count is 8.1. BUN and crea tinine are 4/0.6. Urine 3+ ketones, leukocyte esterase negative, 0 to 2 white cells per high-power field. Serology, HIV is negative. Toxicology is negative. Foot x-ray shows unremarkable right heather t x-ray, if high clinical suspicion for osteomyelitis, MRI can be performed. Right foot culture gre w out Staph aureus. The patient was seen in consultation by Dr. Robison, podiatry. Blood sugar on admission was 732 with DKA. He was stabilized in the intensive care unit. His compartments of the foot were distended with pitting edema, edema spreading to the ankle, ulceration at the PIP joint do rsal aspect of the fourth toe with purulent drainage, no visible instability of the toe or midfoot, dystrophic nails. White count is 7.4 today. BUN and creatinine 5/0.57. Incision and drainage was performed at the bedside, there was a tunneling wound from the toe to the midfoot. Multiple incisi ons were made below the skin, dermis, fascia and 40 to 50 mL of serosanguineous and purulent drainag e was drained. Cultures were obtained. Surgical wounds were irrigated and packed open with a gauze dressing. The patient tolerated the procedure well. He is scheduled for an MRI. He was started on vancomycin and Levaquin. PAST MEDICAL HISTORY: Operations as outlined. FAMILY HISTORY: Noncontributory. SOCIAL HISTORY: Positive for marijuana and social alcohol. ALLERGIES: NONE TO PENICILLIN, SULFA OR FOODS. MEDICATIONS: Per chart. REVIEW OF SYSTEMS: Noncontributory. PHYSICAL EXAMINATION: GENERAL: The patient is a well-developed, well-nourished male who is alert, responsive, in no acute distress. VITAL SIGNS: Stable. He is afebrile. SKIN: Without generalized rash. HEENT: Within normal limits. NECK: Supple. LYMPH NODES: None palpable. CHEST: Decreased breath sounds at the bases. HEART: Without murmur or gallop. ABDOMEN: Soft, obese, nontender, without organosplenomegaly or masses. EXTREMITIES: As outlined. The right foot has significant edema and is status post incision and tiffanie inage with bandage present. PLAN: The patient is currently on vancomycin and Levaquin. We will await the cultures, but so far growing Staphylococcus aureus. I will dictate my findings to the hospitalist and to Dr. Robison. Dictated By: DANNY ABDUL MD, JD/PARTHA Conf#: [id number] DID#: [id number]
--- NOTE | 2016-07-31 15:44 | RADRPT ---
PROCEDURE: MRI OF THE RIGHT FOOT CLINICAL INDICATION: Right foot pain and swelling TECHNIQUE: Multiple MRI images were obtained utilizing multiple sequences in multiple planes. Image s were interpreted on a high-resolution PACS system. COMPARISON: Radiographs of the right foot dated July 30, 2016 FINDINGS: There is a very extensive dorsal subcutaneous soft tissue swelling throughout the forefoot with a sk in defect seen near the fourth metatarsal head (coronal 17 and sagittal 25). There is some associat ed phlegmonous change within the dorsal soft tissues (sagittal 23 and axial 10) measuring 15 x 10 by 14 mm with developing abscess not excluded. There is mild diffuse abnormal STIR signal throughout the metatarsal shafts and phalanges that is no nspecific but not definitive for osteomyelitis at this time and could reflect some ischemic change. There are small nonspecific joint effusions at the metatarsophalangeal joints, slightly more promin ent at the second through fourth. There is no evidence of tendon tear. There is nonspecific intrinsic foot muscle edema. IMPRESSION: 1. Extensive dorsal subcutaneous soft tissue swelling compatible with cellulitis. 2. Skin defect dorsally near the fourth metatarsal head with an ill-defined region of phlegmonous ch celestino versus following abscess measuring 15 x 10 x 14 mm. 3. No definite evidence of osteomyelitis at this time though mild diffuse increased nonspecific STIR signal throughout the forefoot is seen which could reflect some ischemic change. No josé luis erosive changes are present. 4. Small nonspecific metatarsophalangeal joint effusions, most prominent at the second through four th metatarsophalangeal joints. These could be reactive though infection is not excluded by imaging. 5. No evidence of tendon tear. RPTAT: UU .Robinson Hickman MD, Date Time Electronically viewed and signed by .Robinson Hickman MD, on 07/31/2016 15:44 .K/
--- NOTE | 2016-07-31 15:45 | PN ---
Date/Time of Note Date/Time of Note DATE: 07/31/16 TIME: 15:38 Assessment/Plan VTE Prophylaxis VTE Prophylaxis Intervention: ambulation, SCD's Lines/Catheters IV Catheter Type (from Nrsg): Peripheral IV Assessment/Plan Assessment/Plan A 36-year-old male who presents with managed for: Lethargy, nausea vomiting, 1. Diabetic ketoacidosis : resolved 2. Poorly controlled diabetes type 2 : hemoglobin A1c greater than 12 3. Sepsis 2/2 #1 and #4: improved 4. Diabetes foot ulcer with ascending cellulitis and Right foot deep space abscess. * s/p bedside debridement 07/30/16 5. Oral thrush: improved / HIV screen negative 6. Acute renal insufficiency, likely prerenal in origin: Resolved 7. Noncompliance with therapy.: s/p counselling 8. Chronic tobacco use and abuse: s/p counselling PLAN: * F/u final culture results / continue current empiric abx / appreciate podiatry review / ID consult * Continue mgt and titration of hypoglycemics as indicated * CHD panel for screening * PRN pain control/ antiemetics/ antipyretics/ supportive care Subjective 24 Hr Interval Summary Free Text/Dictation Patient seen feels well / no new issues / foot debrided at bedside by podiatry with no complications Exam/Review of Systems Vital Signs Vitals Vital Signs Date Time Temp Pulse Resp B/P Pulse Ox O2 Delivery O2 Flow Rate FiO2 07/31/16 07:57 98.2 94 16 128/72 99 07/30/16 20:00 Room Air Intake and Output 07/30/16 07/30/16 07/31/16 15:00 23:00 07:00 Intake Total 2270 ml 2610 ml 2230 ml Output Total 1400 ml 2000 ml 3325 ml Balance 870 ml 610 ml -1095 ml Exam Constitutional: alert, oriented Psych: nl mood/affect Head: atraumatic, normocephalic Eyes: PERRL, No icteric ENMT: other (thrush much improved) Respiratory: clear to auscultation, normal air movement Cardiovascular: regular rate and rhythm, No murmurs/extra sounds Gastrointestinal: bowel sounds, non-tender, soft Extremities: other (R foot heavily bandaged), No edema Neurological: nl mental status Results Result Diagram: 07/31/16 0638 07/31/16 0638 Results 24 hrs Laboratory Tests Test 07/30/16 17:55 07/30/16 20:34 07/31/16 02:30 07/31/16 06:38 Bedside Glucose 155 252 H 168 White Blood Count 8.1 Red Blood Count 4.11 L Hemoglobin 13.2 L Hematocrit 35.6 L Mean Corpuscular Volume 86.6 Mean Corpuscular Hemoglobin 32.1 Mean Corpuscular Hemoglobin Concent 37.1 H Red Cell Distribution Width 12.8 Platelet Count 162 Mean Platelet Volume 9.2 Neutrophils % 67.5 Lymphocytes % 18.9 Monocytes % 12.9 H Eosinophils % 0.1 Basophils % 0.1 Nucleated Red Blood Cells % 0.0 Neutrophils # 5.4 Lymphocytes # 1.5 Monocytes # 1.0 H Eosinophils # 0.0 Basophils # 0.0 Nucleated Red Blood Cells # 0.0 Sodium Level 134 L Potassium Level 3.0 L Chloride Level 100 Carbon Dioxide Level 29 Anion Gap 8 Blood Urea Nitrogen 4 L Creatinine 0.61 Glucose Level 127 # Calcium Level 8.4 Test 07/31/16 08:22 07/31/16 11:25 07/31/16 12:08 Bedside Glucose 156 194 Vancomycin Level Trough 8.7 L Medications Medications Current Medications Famotidine (Pepcid Iv) 20 mg BID IV Last administered on 07/31/16 08:24; Admin Dose 20 MG; Start 07/28/16 at 21:00 Ondansetron HCl (Zofran Inj) 4 mg Q6H PRN IV NAUSEA AND/OR VOMITING; Start at 19:30 Docusate Sodium (Colace) 200 mg BID PO Last administered on 07/31/16 08:24; Admin Dose 200 MG; Start 07/28/16 at 21:00 Acetaminophen (Tylenol Tab) 650 mg Q6 PRN PO PAIN Last administered on 08:40; Admin Dose 650 MG; Start 07/28/16 at 22:00 Insulin Glargine (Lantus) 20 unit DAILY@08 SC Last administered on 07/31/16 08: 38; Admin Dose 20 UNIT; Start 07/29/16 at 10:00 Miscellaneous Information 1 ea NOTE XX ; Start 07/29/16 at 10:00 Glucose (Glutose) 15 gm Q15M PRN PO DECREASED GLUCOSE; Start 07/29/16 at 10:00 Glucose (Glutose) 22.5 gm Q15M PRN PO DECREASED GLUCOSE; Start 07/29/16 at 10: 00 Dextrose (D50w Syringe) 25 ml Q15M PRN IV DECREASED GLUCOSE; Start 07/29/16 at 10:00 Dextrose (D50w Syringe) 50 ml Q15M PRN IV DECREASED GLUCOSE; Start 07/29/16 at 10:00 Glucagon (Glucagen) 1 mg Q15M PRN IM DECREASED GLUCOSE; Start 07/29/16 at 10:00 Glucose (Glutose) 15 gm Q15M PRN BUCCAL DECREASED GLUCOSE; Start 07/29/16 at 10 :00 Nystatin 5 ml 5 ml QID PO Last administered on 07/31/16 13:13; Admin Dose 5 ML ; Start 07/29/16 at 10:30 Sodium Chloride (NS) 1,000 ml @ 125 mls/hr Q8H IV Last administered on 10:49; Admin Dose 125 MLS/HR; Start 07/29/16 at 15:00 Miscellaneous Information ([facility] This patient lamb... PRN PRN XX WOUND CARE; Start 07/29/16 at 20:00 Zolpidem Tartrate 5 mg 5 mg HS PRN PO INSOMNIA Last administered on 07/30/16 02 :01; Admin Dose 5 MG; Start 07/30/16 at 02:00 Levofloxacin/ Dextrose (Levaquin 500mg/ D5W 100 ml (Pmx)) 100 ml @ 100 mls/hr Q24H IVPB Last administered on 07/31/16 10:48; Admin Dose 100 MLS/HR; Start 07/30/16 at 11:45 Lidocaine (Xylocaine 1% (Mpf)) 30 ml ONCE PRN INJ BEDSIDE I&D; Start 07/30/16 at 22:30 Acetaminophen/ Hydrocodone Bitart ([place] (5/325)) 1 tab Q4H PRN PO PAIN LEVEL 1 -3 Last administered on 07/30/16 23:41; Admin Dose 1 TAB; Start 07/30/16 at 23:00 Morphine Sulfate (morphine) 2 mg Q3H PRN IV PAIN LEVEL 8-10 Last administered on 07/31/16 02:34; Admin Dose 2 MG; Start 07/30/16 at 23:00 Zinc Sulfate (Zinc Sulfate) 220 mg DAILY PO Last administered on 07/31/16 08:23 ; Admin Dose 220 MG; Start 07/31/16 at 09:00 Sodium Hypochlorite (Dakin'S (Dilute 1/40%)) 1 applic BID IRR ; Start 07/31/16 at 09:00 Diagnostic Test (Pha) 1 ea 1 ea 02 XX ; Start 08/01/16 at 02:00 Potassium Chloride 250 ml @ 62.5 mls/hr Q4H IVPB Last administered on 14:30; Admin Dose 62.5 MLS/HR; Start 07/31/16 at 11:00; Stop 07/31/16 at 18: 59 Vancomycin HCl (Vancocin) 250 ml @ 125 mls/hr Q8H IVPB Last administered on 13:14; Admin Dose 125 MLS/HR; Start 07/31/16 at 13:00; Stop 07/31/16 at 20: 00 IMANI GERARD Jul 31, 2016 15:45
[2016-07-31 19:16] VITALS: BP 102/58; RESP 18
--- NOTE | 2016-07-31 20:17 | CONS ---
DATE OF ADMISSION: 07/28/2016 DATE OF CONSULTATION: 07/31/2016 SUBJECTIVE FINDINGS: The patient being followed for a right foot abscess, status post multiple inci kimber and drainage. The patient had MRI and x-rays. No evidence of osteomyelitis. Preliminary cult ures: Staph aureus. The patient relates decreased pain. OBJECTIVE FINDINGS VITAL SIGNS: Temperature 98.8, pulse 103, respiratory rate 18, blood pressure 102/58, pulse ox is 9 8%. GENERAL: The patient alert, oriented, in no acute distress. RIGHT FOOT: Dressings without straight-through drainage. There is significantly-decreased edema an d no visible drainage. There is packing, which was removed. The patient has ulceration at the PIPJ of the fourth toe, as well as multiple incisions; dorsal aspect of the foot. The patient with a 2+ DP pulse. LABORATORIES: WBC 8.1, hemoglobin 13.2, hematocrit 35.6, platelets 162. Cultures: Staph aureus. IMAGING: Foot MRI: Skin defect in the fourth metatarsal head with abscess measuring 15 x 10 x 14 m m, which is likely the open packing. X-rays: Unremarkable. ASSESSMENT: 1. Right foot abscess, status post incision and drainage. 2. Staphylococcal aureus infection. 3. Diabetes type 2, poorly controlled. 4. History of tobacco use. PLAN: The patient is seen and evaluated. Open packing removed and the wound irrigated with Betadin e and saline, significant improvement. Anticipated length of stay 1-2 days. Recommend PT evaluatio n, partial weightbearing to left heel, and dispense Cam boot. Dictated By: OLESYA SOLIS/PARTHA Conf#: [id number] DID#: [id number]
[2016-07-31] MEDS: VANCOMYCIN 1.25 GM in SOD CHLORIDE 0.9% 250 ML IVPB SCH (20:44)
[2016-08-01] MEDS: ACCU-CHEK XX SCH (02:00)
[2016-08-01] MEDS: VANCOMYCIN 1.25 GM in SOD CHLORIDE 0.9% 250 ML IVPB SCH ×2 (05:53→12:14)
[2016-08-01] MEDS: SOD CHLORIDE 0.9% 1,000 ML IV SCH ×4 (07:00→21:16)
[2016-08-01 08:25] VITALS: BP 114/66; RESP 18
[2016-08-01] MEDS: INSULIN GLARGINE [LANtus] 3 ML PEN SC SCH (08:43)
[2016-08-01] MEDS: INSULIN ASPART [NOVOLOG] 3 ML PEN SC SCH ×4 (08:43→21:00)
[2016-08-01] MEDS: metFORMIN 500 MG TAB PO SCH ×2 (08:46→17:49)
[2016-08-01] MEDS: REPAGLINIDE 1 MG TAB PO SCH ×2 (08:46→12:14)
[2016-08-01] MEDS: FAMOTIDINE 20 MG INJ IV SCH ×2 (08:47→21:08)
[2016-08-01] MEDS: DOCUSATE SODIUM 100 MG CAP PO SCH ×2 (08:47→21:08)
[2016-08-01] MEDS: ZINC SULFATE 220 MG CAP PO SCH (08:47)
[2016-08-01] MEDS: NYSTATIN SUSP 5 ML CUP PO SCH ×4 (08:47→21:08)
[2016-08-01] MEDS: SODIUM HYPOCHLORITE 1/40% 1L IRRIG IRR SCH ×2 (08:48→19:55)
--- NOTE | 2016-08-01 08:48 | PN ---
Date/Time of Note Date/Time of Note DATE: 08/01/16 TIME: 08:45 Assessment/Plan VTE Prophylaxis VTE Prophylaxis Intervention: ambulation, SCD's Lines/Catheters IV Catheter Type (from Nrsg): Peripheral IV Assessment/Plan Assessment/Plan A 36-year-old male who presents with managed for: Lethargy, nausea vomiting, 1. Diabetic ketoacidosis : resolved 2. Poorly controlled diabetes type 2 : hemoglobin A1c greater than 12 3. Sepsis 2/2 #1 and #4: improved 4. Diabetes foot ulcer with ascending cellulitis and Right foot deep space abscess. * cultures growing Staph / not MRSA * s/p bedside debridement 07/30/16 5. Oral thrush: improved / HIV screen negative 6. Acute renal insufficiency, likely prerenal in origin: Resolved 7. Noncompliance with therapy.: s/p counselling 8. Chronic tobacco use and abuse: s/p counselling PLAN: * f/u ID final recs / cellulitis improving / podiatry recs noted / begin discharge planning * begin to educate patient on wound dressing * Continue mgt and titration of hypoglycemics as indicated * CHD panel for screening * PRN pain control/ antiemetics/ antipyretics/ supportive care Subjective 24 Hr Interval Summary Free Text/Dictation no new issues Exam/Review of Systems Vital Signs Vitals Vital Signs Date Time Temp Pulse Resp B/P Pulse Ox O2 Delivery O2 Flow Rate FiO2 08/01/16 08:25 98.9 18 114/66 98 07/31/16 19:16 103 07/30/16 20:00 Room Air Intake and Output 07/31/16 07/31/16 08/01/16 15:00 23:00 07:00 Intake Total 2980 ml 3060 ml 900 ml Output Total 2950 ml 1200 ml Balance 2980 ml 110 ml -300 ml Exam Constitutional: alert, oriented Head: atraumatic, normocephalic, oral thrush. Neck: non-tender, supple Respiratory: clear to auscultation Cardiovascular: regular rate and rhythm Gastrointestinal: nl liver, spleen, non-tender, soft Extremities: normal pulses Results Result Diagram: 07/31/16 0638 07/31/16 0638 Results 24 hrs Laboratory Tests Test 07/31/16 11:25 07/31/16 12:08 07/31/16 17:35 07/31/16 20:42 Vancomycin Level Trough 8.7 L Bedside Glucose 194 234 H 178 Test 08/01/16 08:17 Bedside Glucose 179 Medications Medications Current Medications Famotidine (Pepcid Iv) 20 mg BID IV Last administered on 07/31/16 20:43; Admin Dose 20 MG; Start 07/28/16 at 21:00 Ondansetron HCl (Zofran Inj) 4 mg Q6H PRN IV NAUSEA AND/OR VOMITING; Start at 19:30 Docusate Sodium (Colace) 200 mg BID PO Last administered on 07/31/16 20:43; Admin Dose 200 MG; Start 07/28/16 at 21:00 Acetaminophen (Tylenol Tab) 650 mg Q6 PRN PO PAIN Last administered on 08:40; Admin Dose 650 MG; Start 07/28/16 at 22:00 Insulin Glargine (Lantus) 20 unit DAILY@08 SC Last administered on 08/01/16 08: 43; Admin Dose 20 UNIT; Start 07/29/16 at 10:00 Miscellaneous Information 1 ea NOTE XX ; Start 07/29/16 at 10:00 Glucose (Glutose) 15 gm Q15M PRN PO DECREASED GLUCOSE; Start 07/29/16 at 10:00 Glucose (Glutose) 22.5 gm Q15M PRN PO DECREASED GLUCOSE; Start 07/29/16 at 10: 00 Dextrose (D50w Syringe) 25 ml Q15M PRN IV DECREASED GLUCOSE; Start 07/29/16 at 10:00 Dextrose (D50w Syringe) 50 ml Q15M PRN IV DECREASED GLUCOSE; Start 07/29/16 at 10:00 Glucagon (Glucagen) 1 mg Q15M PRN IM DECREASED GLUCOSE; Start 07/29/16 at 10:00 Glucose (Glutose) 15 gm Q15M PRN BUCCAL DECREASED GLUCOSE; Start 07/29/16 at 10 :00 Nystatin 5 ml 5 ml QID PO Last administered on 07/31/16 20:43; Admin Dose 5 ML ; Start 07/29/16 at 10:30 Sodium Chloride (NS) 1,000 ml @ 125 mls/hr Q8H IV Last administered on 10:49; Admin Dose 125 MLS/HR; Start 07/29/16 at 15:00 Miscellaneous Information (Pending [facility] Order For Wound Care) This patient lamb... PRN PRN XX WOUND CARE; Start 07/29/16 at 20:00 Zolpidem Tartrate 5 mg 5 mg HS PRN PO INSOMNIA Last administered on 07/30/16 02 :01; Admin Dose 5 MG; Start 07/30/16 at 02:00 Levofloxacin/ Dextrose (Levaquin 500mg/ D5W 100 ml (Pmx)) 100 ml @ 100 mls/hr Q24H IVPB Last administered on 07/31/16 10:48; Admin Dose 100 MLS/HR; Start 07/30/16 at 11:45 Lidocaine (Xylocaine 1% (Mpf)) 30 ml ONCE PRN INJ BEDSIDE I&D; Start 07/30/16 at 22:30 Acetaminophen/ Hydrocodone Bitart ([place] (5/325)) 1 tab Q4H PRN PO PAIN LEVEL 1 -3 Last administered on 07/30/16 23:41; Admin Dose 1 TAB; Start 07/30/16 at 23:00 Morphine Sulfate (morphine) 2 mg Q3H PRN IV PAIN LEVEL 8-10 Last administered on 07/31/16 02:34; Admin Dose 2 MG; Start 07/30/16 at 23:00 Zinc Sulfate (Zinc Sulfate) 220 mg DAILY PO Last administered on 07/31/16 08:23 ; Admin Dose 220 MG; Start 07/31/16 at 09:00 Sodium Hypochlorite (Dakin'S (Dilute 1/40%)) 1 applic BID IRR ; Start 07/31/16 at 09:00 Diagnostic Test (Pha) 1 ea 1 ea 02 XX ; Start 08/01/16 at 02:00 Vancomycin HCl/ Sodium Chloride (Vancocin/NS) 250 ml @ 83.333 mls/ hr Q8H IVPB Last administered on 08/01/16 05:53; Admin Dose 83.333 MLS/HR; Start 07/31/16 at 21:00 Miscellaneous Information (*Rx Drug Level Order Reminder*) VANCO TR LEVEL PRIOR... ONCE ONCE XX ; Start 08/01/16 at 20:00; Stop 08/01/16 at 20:01 Procedures Procedures PROCEDURE: MRI OF THE RIGHT FOOT CLINICAL INDICATION: Right foot pain and swelling TECHNIQUE: Multiple MRI images were obtained utilizing multiple sequences in multiple planes. Images were interpreted on a high-resolution PACS system. COMPARISON: Radiographs of the right foot dated July 30, 2016 FINDINGS: There is a very extensive dorsal subcutaneous soft tissue swelling throughout the forefoot with a skin defect seen near the fourth metatarsal head (coronal 17 and sagittal 25). There is some associated phlegmonous change within the dorsal soft tissues (sagittal 23 and axial 10) measuring 15 x 10 by 14 mm with developing abscess not excluded. There is mild diffuse abnormal STIR signal throughout the metatarsal shafts and phalanges that is nonspecific but not definitive for osteomyelitis at this time and could reflect some ischemic change. There are small nonspecific joint effusions at the metatarsophalangeal joints, slightly more prominent at the second through fourth. There is no evidence of tendon tear. There is nonspecific intrinsic foot muscle edema. IMPRESSION: 1. Extensive dorsal subcutaneous soft tissue swelling compatible with cellulitis. 2. Skin defect dorsally near the fourth metatarsal head with an ill-defined region of phlegmonous change versus following abscess measuring 15 x 10 x 14 mm. 3. No definite evidence of osteomyelitis at this time though mild diffuse increased nonspecific STIR signal throughout the forefoot is seen which could reflect some ischemic change. No josé luis erosive changes are present. 4. Small nonspecific metatarsophalangeal joint effusions, most prominent at the second through fourth metatarsophalangeal joints. These could be reactive though infection is not excluded by imaging. 5. No evidence of tendon tear. RPTAT: UU .Robinson Hickman MD, MD Date Time Electronically viewed and signed by .Robinson Hickman MD, on 07/31/2016 15: 44 .IMANI PATTEN Aug 01, 2016 08:48
[2016-08-01] MEDS ORDERED: INSULIN GLARGINE [LANtus] 3 ML PEN SC ONE (09:00)
[2016-08-01 10:47] LABS: ADD SCAN DIFF NO
[2016-08-01 10:56] LABS: BASOPHILS % 0.3 % (0.0-2.0); EOSINOPHILS % 0.3 % (0.0-7.0); HEMATOCRIT 33.9 % (42.0-52.0); HEMOGLOBIN 12.4 g/dl (14.0-18.0); LYMPHOCYTES # 1.3 10^3/ul (0.8-2.9); LYMPHOCYTES % 16.7 % (15.0-51.0); MEAN CORPUSCULAR HGB CONC 36.6 g/dl (32.0-37.0); MEAN CORPUSCULAR VOLUME 87.6 fl (82.0-101.0); MEAN PLATELET VOLUME 9.1 fl (7.4-10.4); MONOCYTE # 0.9 10^3/ul (0.3-0.9); MONOCYTES % 11.9 % (0.0-11.0); NEUTROPHIL # 5.4 10^3/ul (1.6-7.5); NEUTROPHILS % 70.4 % (39.0-77.0); PLATELET COUNT 183 10^3/UL (140-415); RED BLOOD COUNT 3.87 10^6/ul (4.70-6.10); RED CELL DISTRIBUTION WIDTH 13.3 % (11.5-14.5); WHITE BLOOD COUNT 7.7 10^3/ul (4.8-10.8)
[2016-08-01] MEDS: LEVOFLOXACIN 500MG/D5W (PMX) 100 ML IVPB SCH (10:57)
[2016-08-01 11:07] LABS: CALCIUM 8.9 mg/dl (8.4-10.2); CREATININE 0.61 mg/dl (0.61-1.24); POTASSIUM 3.3 mmol/L (3.5-5.1)
--- NOTE | 2016-08-01 14:40 | PN ---
DATE: 08/01/2016 SUBJECTIVE: No acute changes. Patient is alert, feels good, looks comfortable. Denies pain, no fevers. WBC 7.7, no shift, no bands. BUN 6, creatinine 0.61. MICROBIOLOGY: Wound culture growing oxacillin-sensitive Staphylococcus aureus. DIAGNOSTICS: MRI of the foot revealed cellulitis with a phlegmonous change, no evidence of osteomyelitis. PHYSICAL EXAMINATION: GENERAL: This is a well-developed, middle-aged man who is alert, in no distress. HEENT: Head atraumatic, normocephalic. Sclerae anicteric. Buccal mucosa pink. NECK: Supple. CHEST: Rise symmetrical. HEART: S1, S2. ABDOMEN: Soft, bowel tones present. EXTREMITIES: With right foot dressing intact. ASSESSMENT: 1. Right diabetic foot ulcer with culture growing oxacillin-sensitive Staphylococcus aureus, status post incision and drainage. 2. Poorly controlled diabetes. 3. Peripheral diabetic neuropathy. 4. History of noncompliance and tobacco abuse. PLAN: The patient remains stable. We will await intraoperative cultures and sensitivities and anticipate to send patient home on oral antibiotics once he is cleared by podiatry. Dictated By: MIYA HOOD MOLD YARN SUPERVISOR for DANNY CARRASCO/PARTHA Conf#: [id number] DID#: [id number] IMANI
[2016-08-01] MEDS: ACETAMINOPHEN 325 MG TAB PO PRN ×2 (15:50→21:08)
--- NOTE | 2016-08-01 16:14 | CONS ---
DATE OF ADMISSION: 07/28/2016 DATE OF CONSULTATION: 08/01/2016 SUBJECTIVE FINDINGS: The patient is being followed for an abscess of the right foot. He is status post incision and drainage. Cultures reveal Staph aureus. Sensitivity is pending. X-rays and MRI without evidence of osteomyelitis. Patient relates mild throbbing PHYSICAL EXAMINATION: VITAL SIGNS: Temperature 98.9, pulse 103, respiratory rate 18, blood pressure 114/66, pulse ox is 9 8%. EXTREMITIES: The patient is sitting. The foot is a dependent position, using the Cam boot. Dressing s are intact. No malodor. LUNGS: Regular respirations. LABORATORIES: WBC 7.7, hemoglobin 12.4, hematocrit 33.9, platelets 183. MICROBIOLOGY: Wound cultures, Staph aureus. ASSESSMENT: 1. Right foot abscess, status post incision and drainage. 2. Staphylococcus aureus infection. 3. Diabetes type 2, poorly controlled. 4. History of tobacco use. PLAN: The patient is improving. He is able to shower. Recommend daily dressing changes, Xeroform, 4 x 4 gauze, Kerlix. Continue to ambulate with the use of a Cam boot. Patient is stable for discha rge and discharge on p.o. antibiotics. Appreciate ID recommendations. Recommend to follow up as an outpatient. Dictated By: OLESYA SOLIS/PARTHA Conf#: [id number] DID#: [id number]
[2016-08-01] MEDS: REPAGLINIDE 2 MG TAB PO SCH (17:49)
[2016-08-01 20:00] VITALS: BP 121/72; RESP 20
[2016-08-01] MEDS: VANCOMYCIN 1.5 GM in SOD CHLORIDE 0.9% 250 ML IVPB SCH (22:49)
[2016-08-02] MEDS: ACCU-CHEK XX SCH (02:00)
[2016-08-02] MEDS: VANCOMYCIN 1.5 GM in SOD CHLORIDE 0.9% 250 ML IVPB SCH ×2 (06:10→14:45)
[2016-08-02] MEDS: SOD CHLORIDE 0.9% 1,000 ML IV SCH ×2 (07:00→15:00)
[2016-08-02] MEDS ORDERED: INSULIN GLARGINE [LANtus] 3 ML PEN SC SCH (08:00)
[2016-08-02 08:01] VITALS: BP 111/62; RESP 16
[2016-08-02] MEDS: REPAGLINIDE 2 MG TAB PO SCH ×2 (08:06→12:45)
[2016-08-02] MEDS: metFORMIN 500 MG TAB PO SCH (08:06)
[2016-08-02] MEDS: ZINC SULFATE 220 MG CAP PO SCH (08:06)
[2016-08-02] MEDS: NYSTATIN SUSP 5 ML CUP PO SCH ×2 (08:06→12:45)
[2016-08-02] MEDS: DOCUSATE SODIUM 100 MG CAP PO SCH (08:06)
[2016-08-02] MEDS: FAMOTIDINE 20 MG INJ IV SCH (08:07)
[2016-08-02] MEDS: INSULIN ASPART [NOVOLOG] 3 ML PEN SC SCH ×2 (08:10→12:46)
[2016-08-02] MEDS: SODIUM HYPOCHLORITE 1/40% 1L IRRIG IRR SCH (09:00)
--- NOTE | 2016-08-02 10:59 | PDOCDIS ---
Discharge Instructions DIAGNOSIS Discharge Diagnosis: Diabetes ketoacidosis / diabetic foot ulcer CONDITION Patient Condition: Stable HOME CARE INSTRUCTIONS: Special Diet: DIABETIC CARB COUNT FOLLOW UP/APPOINTMENTS Appointments Followup with your primary doctor within the next 1-2 weeks. * Your primary care doctor is : * [facility] * [address] [facility] [place] [address] * Please call them for an appointment. You may also call your insurance company to assign one to you. Review your medication list with your nurse before leaving and if you need new prescriptions please let your nurse know. I may have made changes to your home medications or given you new prescriptions , please let your primary doctor know as well. Stay compliant with your medications and report any side effects to your PCP or pharmacist. Return to the ER if you have any concerns and cannot reach your doctors or call your insurance company, they usually have a nurse that can help you. REFERRALS Other Referrals Please folllowup with Dr Robison for podiatry Name, Degree: Dejuan Robison DPM Specialty: Podiatry Comments: Office Address: [facility] [address] [place] [address] Office Office Fax: IMANI GERARD Aug 02, 2016 10:59 IMANI GERARD Aug 02, 2016 10:59
[2016-08-02] MEDS ORDERED: LEVO750T8 PO (11:08)
[2016-08-02] MEDS ORDERED: LANC1COM MC (11:08)
[2016-08-02] MEDS ORDERED: LANT3I SC (11:08)
[2016-08-02] MEDS ORDERED: NYST1000 PO (11:08)
[2016-08-02] MEDS ORDERED: LACT1CAP57 PO (11:08)
[2016-08-02] MEDS ORDERED: ZINC220C11 PO (11:08)
[2016-08-02] MEDS ORDERED: METF500T PO (11:08)
[2016-08-02] MEDS ORDERED: GLIP-95 PO (11:08)
[2016-08-02] MEDS ORDERED: DOCU-216 PO (11:08)
[2016-08-02] MEDS: LEVOFLOXACIN 500MG/D5W (PMX) 100 ML IVPB SCH (11:46)
[2016-08-02] MEDS ORDERED: CLIN-73 PO (13:55)
--- NOTE | 2016-08-02 14:24 | DS ---
Date/Time of Note Date/Time of Note DATE: 08/02/16 TIME: 14:12 Discharge Summary Admission/Discharge Info Admit Date/Time July 28, 2016 at 18:14 Discharge Date/Time 08/02/16 . Final Diagnosis A 36-year-old male who presents with managed for: Lethargy, nausea vomiting, 1. Diabetic ketoacidosis : resolved 2. Poorly controlled diabetes type 2 : hemoglobin A1c greater than 12 3. Sepsis 2/2 #1 and #4: improved 4. Diabetes foot ulcer with ascending cellulitis and Right foot deep space abscess. * cultures growing Staph / not MRSA * s/p bedside debridement 07/30/16 5. Oral thrush: improved / HIV screen negative 6. Acute renal insufficiency, likely prerenal in origin: Resolved 7. Noncompliance with therapy.: s/p counselling 8. Chronic tobacco use and abuse: s/p counselling . Patient Condition: Stable Consults Dejuan Robison: Podiatry Ulises Butler: ID . Procedures see hospital course. . Hospital Course This is a pleasant 36-year-old male who was admitted via the ER after he has presented with severe lethargy and was found to have diabetic ketoacidosis. He was admitted to the intensive care unit on the insulin drip protocol and improved by the next day and was out of DKA. At that time was seen by diabetic education and started on an appropriate insulin and oral hypoglycemic regimen that has been titrated for optimal control. He is doing quite well on his current regimen. However he was also noticed to have an ulcer inThe fourth metatarsal head that also had an abscess in it. For that he was seen by infectious disease as well as podiatry. Podiatry to bedside drainage and cultures grew out Staphylococcus that was not MRSA at this time he has undergone an MRI and the MRI does not show evidence of osteomyelitis. He will be discharged him on oral antibiotics per sensitivity and followup with Dr. Kaela boyd as outpatient. Patient has been examined and evaluated in detail today. He is in stable condition for discharge. Patient is okay with discharge. . Home Meds Active Scripts Clindamycin Hcl* (Clindamycin Hcl*) 300 Mg Capsule, 300 MG PO Q8 for 14 Days, CAP Prov:RAJANIIMANI. 08/02/16 Lactobacillus Rhamnosus* (Culturelle*) 1 Each Cap.sprink, 1 CAP PO BID for 14 Days, CAP Prov:IMANI GERARD. 08/02/16 Levofloxacin* (Levofloxacin*) 750 Mg Tablet, 750 MG PO DAILY for 14 Days, TAB Prov:IMANI GERARD 08/02/16 Lancets/Blood Glucose Strips (Fora [id number] Lanct-Str) 1 Each Combo..pkg , 1 EACH [facility] AC MEALS AND BEDTIME, #100 2 Refills Prov:IMANI GERARDLeonel 08/02/16 Glipizide* (Glipizide*) 10 Mg Tablet, 10 MG PO DAILY for 30 Days, TAB 3 Refills Prov:IMANI GERARDLeonel 08/02/16 Metformin Hcl (Glucophage) 500 Mg Tablet, 1000 MG PO BID WITH MEALS for 30 Days , TAB 3 Refills Prov:IMANI GERARDLeonel 08/02/16 Insulin Glargine* (Lantus*) 100 Unit/Ml Soln, 25 UNIT SC DAILY@08 for 30 Days, 3 Refills Prov:IMANI GERARDLeonel 08/02/16 Zinc Sulfate (ZINC-220) 220 Mg Cap, 220 MG PO DAILY for 30 Days, CAP Prov:IMANI GERARDLeonel 08/02/16 Docusate Sodium (Dok) 100 Mg Capsule, 200 MG PO BID for 14 Days, CAP Prov:IMANI GERARDLeonel 08/02/16 Nystatin (Nystatin) 100,000 Unit/1 Ml Oral.susp, 5 ML PO QID for 8 Days Prov:IMANI GERARDLeonel 08/02/16 Primary Care Provider [facility] Time spent on discharge: > 30 minutes Pending Labs Laboratory Tests Test 08/01/16 17:35 08/01/16 21:06 08/01/16 21:07 08/02/16 07:54 Bedside Glucose 124mg/dL (70-220) 135mg/dL (70-220) 180mg/dL (70-220) Vancomycin Level Trough 7.0ug/ml (10.0-20.0) Test 08/02/16 12:21 08/02/16 13:08 Bedside Glucose 233mg/dL (70-220) Lab Scanned Report REFERENCE [id number] IMANI GERARD Aug 02, 2016 14:24
--- NOTE | 2016-08-02 14:34 | CONS ---
DATE OF ADMISSION: 07/28/2016 DATE OF CONSULTATION: 08/02/2016 SUBJECTIVE FINDINGS: The patient being followed for right foot abscess, status post incision and dr blanco. The patient states there is less pain. He is able to actively move the toes. Denies any f ever, nausea, vomiting. Cultures Staph aureus, sensitivities pending. OBJECTIVE FINDINGS VITAL SIGNS: Temperature 98, pulse is 84, respiratory rate 16, blood pressure 111/62, pulse ox is 1 00%. GENERAL: The patient alert, oriented, in no acute distress. He has 2+ popliteal pulse. EXTREMITIES: Dressings are clean, dry and intact. Patient able to mobilize the toes. ASSESSMENT: 1. Right foot abscess. 2. Cellulitis. 3. Status post incision and drainage. 4. Diabetes, poorly controlled. PLAN: Reviewed cultures. The patient with Staph aureus with multiple sensitivities, overall improv ement. Nursing recommendations given for daily wound care and recommend continued use of the Cam fabi ot and follow up as an outpatient for diabetes management as well as for the wounds. Recommend foll owup in 1 to 2 weeks as an outpatient and continue antibiotics for 7 to 10 days following discharge. Dictated By: OLESYA SOLIS/PARTHA Conf#: [id number] DID#: [id number]
--- NOTE | 2016-08-02 15:04 | CONS ---
Date/Time of Note Date/Time of Note DATE: 08/02/16 TIME: 15:02 Assessment/Plan Assessment/Plan Chief Complaint/Hosp Course SUBJECTIVE: No acute changes. Patient is alert, feels good, looks comfortable. Denies pain, no fevers. MICROBIOLOGY: Wound culture growing oxacillin-sensitive Staphylococcus aureus. DIAGNOSTICS: MRI of the foot revealed cellulitis with a phlegmonous change, no evidence of osteomyelitis. PHYSICAL EXAMINATION: GENERAL: This is a well-developed, middle-aged man who is alert, in no distress. HEENT: Head atraumatic, normocephalic. Sclerae anicteric. Buccal mucosa pink. NECK: Supple. CHEST: Rise symmetrical. HEART: S1, S2. ABDOMEN: Soft, bowel tones present. EXTREMITIES: With right foot dressing intact. ASSESSMENT: 1. Right diabetic foot ulcer with culture growing oxacillin-sensitive Staphylococcus aureus, status post incision and drainage. 2. Poorly controlled diabetes. 3. Peripheral diabetic neuropathy. 4. History of noncompliance and tobacco abuse. PLAN: The patient remains stable. Will change abx to Ancef, f/u podiatry rec-s , anticipate dc on oral Bactrim or Keflex DW staff Problems: Consultation Date/Type/Reason Admit Date/Time July 28, 2016 at 18:14 Initial Consult Date Type of Consultation: ID Exam/Review of Systems Vital Signs Vitals Vital Signs Date Time Temp Pulse Resp B/P Pulse Ox O2 Delivery O2 Flow Rate FiO2 08/02/16 08:01 98.0 84 16 111/62 100 07/30/16 20:00 Room Air Intake and Output 08/01/16 08/01/16 08/02/16 15:00 23:00 07:00 Intake Total 550 ml 3410 ml 1700 ml Output Total 1500 ml 2350 ml Balance 550 ml 1910 ml -650 ml Results Result Diagram: 08/01/16 1030 08/01/16 1030 Results 24 hrs Laboratory Tests Test 08/01/16 17:35 08/01/16 21:06 08/01/16 21:07 08/02/16 07:54 Bedside Glucose 124 135 180 Vancomycin Level Trough 7.0 L Test 08/02/16 12:21 08/02/16 13:08 Bedside Glucose 233 H Lab Scanned Report REFERENCE LAB Medications Medications Current Medications Famotidine (Pepcid Iv) 20 mg BID IV Last administered on 08/02/16 08:07; Admin Dose 20 MG; Start 07/28/16 at 21:00 Ondansetron HCl (Zofran Inj) 4 mg Q6H PRN IV NAUSEA AND/OR VOMITING; Start at 19:30 Docusate Sodium (Colace) 200 mg BID PO Last administered on 08/02/16 08:06; Admin Dose 200 MG; Start 07/28/16 at 21:00 Acetaminophen (Tylenol Tab) 650 mg Q6 PRN PO PAIN Last administered on 21:08; Admin Dose 650 MG; Start 07/28/16 at 22:00 Miscellaneous Information 1 ea NOTE XX ; Start 07/29/16 at 10:00 Glucose (Glutose) 15 gm Q15M PRN PO DECREASED GLUCOSE; Start 07/29/16 at 10:00 Glucose (Glutose) 22.5 gm Q15M PRN PO DECREASED GLUCOSE; Start 07/29/16 at 10: 00 Dextrose (D50w Syringe) 25 ml Q15M PRN IV DECREASED GLUCOSE; Start 07/29/16 at 10:00 Dextrose (D50w Syringe) 50 ml Q15M PRN IV DECREASED GLUCOSE; Start 07/29/16 at 10:00 Glucagon (Glucagen) 1 mg Q15M PRN IM DECREASED GLUCOSE; Start 07/29/16 at 10:00 Glucose (Glutose) 15 gm Q15M PRN BUCCAL DECREASED GLUCOSE; Start 07/29/16 at 10 :00 Nystatin 5 ml 5 ml QID PO Last administered on 08/02/16 12:45; Admin Dose 5 ML ; Start 07/29/16 at 10:30 Sodium Chloride (NS) 1,000 ml @ 125 mls/hr Q8H IV Last administered on 21:16; Admin Dose 125 MLS/HR; Start 07/29/16 at 15:00 Miscellaneous Information ([facility] For [facility]ound Care) This patient lamb... PRN PRN XX WOUND CARE; Start 07/29/16 at 20:00 Zolpidem Tartrate 5 mg 5 mg HS PRN PO INSOMNIA Last administered on 07/30/16 02 :01; Admin Dose 5 MG; Start 07/30/16 at 02:00 Levofloxacin/ Dextrose (Levaquin 500mg/ D5W 100 ml (Pmx)) 100 ml @ 100 mls/hr Q24H IVPB Last administered on 08/02/16 11:46; Admin Dose 100 MLS/HR; Start 07/30/16 at 11:45 Lidocaine (Xylocaine 1% (Mpf)) 30 ml ONCE PRN INJ BEDSIDE I&D; Start 07/30/16 at 22:30 Acetaminophen/ Hydrocodone Bitart ([place] (5/325)) 1 tab Q4H PRN PO PAIN LEVEL 1 -3 Last administered on 07/30/16 23:41; Admin Dose 1 TAB; Start 07/30/16 at 23:00 Morphine Sulfate (morphine) 2 mg Q3H PRN IV PAIN LEVEL 8-10 Last administered on 07/31/16 02:34; Admin Dose 2 MG; Start 07/30/16 at 23:00 Zinc Sulfate (Zinc Sulfate) 220 mg DAILY PO Last administered on 08/02/16 08:06 ; Admin Dose 220 MG; Start 07/31/16 at 09:00 Sodium Hypochlorite (Dakin'S (Dilute 1/40%)) 1 applic BID IRR ; Start 07/31/16 at 09:00 Diagnostic Test (Pha) (Accu-Chek) 1 ea 02 XX ; Start 08/01/16 at 02:00 Insulin Glargine 25 unit 25 unit DAILY@08 SC Last administered on 08/02/16 08: 10; Admin Dose 25 UNIT; Start 08/02/16 at 08:00 Vancomycin HCl/ Sodium Chloride (Vancocin/NS) 250 ml @ 83.333 mls/ hr Q8H IVPB Last administered on 08/02/16 14:45; Admin Dose 83.333 MLS/HR; Start 08/01/16 at 22:30 Miscellaneous Information (*Rx Drug Level Order Reminder*) VANCOMYCIN TROUGH LEVEL... ONCE ONCE XX ; Start 08/03/16 at 06:00; Stop 08/03/16 at 06:01 MIYA HOOD NP Aug 02, 2016 15:04
[2016-08-02] MEDS ORDERED: CEFAZOLIN 1 GM/50 ML (PMX) 50 ML IVPB SCH (18:00)
--- NOTE | 2016-08-04 11:53 | PQ ---
Date/Time of Note Date/Time of Note DATE: 08/04/16 TIME: 11:50 Physician Query Documentation Clarification Dear Dr. Brown, A review of the medical record found a need for documentation clarification. Please clarify if the following diagnosis: DC Summary & PN - 07/31 3. Sepsis 04/02 #1 and #4: improved 07/28 -WBC = 12.5 VA = 101 Meds: Vancomycin Iv 07/30 Was: ( X ) Present on admission ( ) Not present on admission ( ) Clinically undetermined ( ) Others Please provide your response by clicking edit document, making your choice ( x ), click ok/save and finally click sign. You may also document your response on your progress notes. Thank you for your time. Sincerely, David Finley RN, BSN, CCS, CCDS Clinical Logistics Specialist Health Information Management, [employer] and Coding Services [phone] Room # 1525 - [address]~ [id number] DAVID FINLEY Aug 04, 2016 11:53
== END 2016-08-02 16:05 | disposition home or self-care (01) | DRG 853 ==
LOC: E/R 15:54 → ICU 18:14 → MS2 07-29 18:10
PROVIDERS: ADMIT Family Medicine; ATTEND Family Medicine
PROC: 0J9Q0ZZ Drainage of Right Foot Subcutaneous Tissue and Fascia, Open Approach (ICD-10-PCS; principal; 2016-07-28)
DX: A41.9 Sepsis, unspecified organism (principal); E13.10 Other specified diabetes mellitus with ketoacidosis without coma; B37.0 Candidal stomatitis; E11.621 Type 2 diabetes mellitus with foot ulcer; E87.1 Hypo-osmolality and hyponatremia; E11.42 Type 2 diabetes mellitus with diabetic polyneuropathy; L03.115 Cellulitis of right lower limb; L02.611 Cutaneous abscess of right foot; L97.519 Non-pressure chronic ulcer of other part of right foot with unspecified severity; E86.0 Dehydration; Z91.19 Patient's noncompliance with other medical treatment and regimen; N28.9 Disorder of kidney and ureter, unspecified; E87.5 Hyperkalemia; E87.6 Hypokalemia; E83.42 Hypomagnesemia; B95.61 Methicillin susceptible Staphylococcus aureus infection as the cause of diseases classified elsewhere; Z72.0 Tobacco use
CPT/HCPCS: 36415; 73630; 73718; 80048; 80053; 80202; 81001; 82962; 83036; 83605; 83735; 84100; 85025; 86703; 87070; 87081; 96374; 97162; J1815; J1956; J2060; J2270; J3370; J3475; J3480; J7030; J7042; J7050; J7120